=== PATIENT | female | born 1930 | race Caucasian/White ===

== ENCOUNTER 2018-08-30 01:28 | Inpatient (IN) ==
[2018-08-30 03:30] LABS: ABG Base Excess -3.5 mmol/L (-2.4-2.3); ABG HCO3 23.7 mmhg (22.0-26.0); ABG Oxygen Saturation 93 % (90-100); ABG PH 7.25 mmol/L (7.35-7.45); ABG PO2 74.6 mmhg (80-100); ABG TCO2 25.4 mmhg (23-27); Allen's Test Y; Oxygen 2.5 %
[2018-08-30 04:52] LABS: INR 1.16 (0.9-1.1); Prothrombin Time 11.9 seconds (9.4-11.8)
[2018-08-30 04:55] LABS: Basophils % 0.4 % (0.1-2.0); Eosinophils # 0.2 K/mm3 (0.0-0.4); Eosinophils % 5.4 % (0.1-12.0); Hematocrit 36.3 % (37.0-47.0); Hemoglobin 11.1 g/dL (12.2-16.2); Lymphocytes # 0.3 K/mm3 (0.7-4.5); Lymphocytes % 9.7 % (10-50); Mean Corpuscular HGB Conc 30.6 g/dL (31.8-35.4); Mean Corpuscular Hemoglobin 30.2 pg (27.0-31.2); Mean Corpuscular Volume 98.7 fl (81-99); Mean Platelet Volume 11.6 fl (7.4-10.4); Monocytes # 0.2 K/mm3 (0.1-1.0); Monocytes % 4.5 % (1.7-9.3); Neutrophils # 2.8 K/mm3 (1.8-7.8); Red Blood Count 3.68 M/mm3 (4.20-5.40); Red Cell Distribution Width 17.1 % (11.5-17.5); White Blood Count 3.5 K/mm3 (4.8-10.8)
[2018-08-30 05:05] LABS: Platelet Count 27 K/mm3 (142-424)
[2018-08-30 05:08] LABS: Albumin Level 2.6 gm/dL (3.4-5.0); Albumin/Globulin Ratio 0.8 (1.1-1.8); Anion Gap 7.9 mEq/L (5-15); Bilirubin,Total 0.4 mg/dL (0.2-1.0); Calcium 9.6 mg/dL (8.5-10.1); Globulin 3.2 gm/dl (1.3-3.2); Potassium 4.9 mmoL/L (3.5-5.1); Total Protein,Serum 5.8 gm/dL (6.4-8.2)
--- NOTE | 2018-08-30 07:44 | Pharmacy Consult Notes ---
[facility] Pharmacy VTE Monitoring - Patient Demographics Admission date: 08/30/18 Report Date: 08/30/18 Time: 07:44 Allergies/Adverse Reactions: Patient Allergies No Known Allergies Allergy (Verified 08/30/18 03:18) Height: 1.7 m Weight: 92.164 kg - VTE Risk Labs: VTE Related Lab Results Hgb 11.1 g/dL (12.2-16.2) L 08/30/18 04:00 Hct 36.3 % (37.0-47.0) L 08/30/18 04:00 Plt Count 27 K/mm3 (142-424) L* 08/30/18 04:00 PT 11.9 seconds (9.4-11.8) H 08/30/18 04:00 INR 1.16 (0.9-1.1) H 08/30/18 04:00 BUN 55 mg/dL (7-18) H 08/30/18 04:00 Creatinine 2.82 mg/dL (0.55-1.02) H 08/30/18 04:00 Estimated Creat Clear 20 mL/min (50-200) 08/30/18 04:00 VTE Risk Level: Moderate Risk - Prophylaxis VTE Prophylaxis Ordered?: Yes Types of VTE Prophylaxis: TEDS Knee High Location of Applied Device: Bilateral Lower Extremeties - VTE Diagnosis Confirmed Treatment or plan recommended: Continue Current Treatment
--- NOTE | 2018-08-30 08:07 | Non-Invasive Vascular Report ---
"Venous Exam Indications: 729.81 Swelling of limb. IMPRESSIONS 1. There is no evidence of significant Reflux. 2. No evidence of deep or superficial vein thrombosis involving the right lower extremity 3. No evidence of deep or superficial vein thrombosis involving the left lower extremity Limited exam unable to visualize veins below knees bilaterally secondary to edema and immobility. Complete lower extremity venous duplex evaluation. Doppler flow study including spectral analysis, color and hope scale imaging. Location: Bedside. Patient status: Inpatient. Tables: Venous flow and imaging: + +-------+ + |Location |Overall|Flow properties | + +-------+ + |Right common femoral |Patent |Normal phasicity; spontaneous; | | | |normal augmentation; compressible| + +-------+ + |Right saphenofemoral junction|Patent |Compressible | + +-------+ + |Right profunda femoral |Patent |Compressible | + +-------+ + |Right femoral |Patent |Normal phasicity; spontaneous; | | | |normal augmentation; | | | |compressible; no reflux | + +-------+ + |Right greater saphenous |Patent |Normal phasicity; spontaneous; | | | |normal augmentation; compressible| + +-------+ + |Right popliteal |Patent |Normal phasicity; spontaneous; | | | |normal augmentation; compressible| + +-------+ + |Right posterior tibial |-------| | + +-------+ + |Right peroneal |-------| | + +-------+ + |Right gastrocnemius |-------| | + +-------+ + |Right soleal |-------| | + +-------+ + |Left common femoral |Patent |Normal phasicity; spontaneous; | | | |normal augmentation; compressible| + +-------+ + |Left saphenofemoral junction |Patent |Compressible | + +-------+ + |Left profunda femoral |Patent |Compressible | + +-------+ + |Left femoral |Patent |Normal phasicity; spontaneous; | | | |normal augmentation; compressible| + +-------+ + |Left greater saphenous |Patent |Normal phasicity; spontaneous; | | | |normal augmentation; compressible| + +-------+ + |Left popliteal |Patent |Normal phasicity; spontaneous; | | | |normal augmentation; compressible| + +-------+ + |Left posterior tibial |Patent |Compressible | + +-------+ + |Left peroneal |-------| | + +-------+ + |Left gastrocnemius |-------| | + +-------+ + |Left soleal |-------| | + +-------+ + (Report amended ) Electronically signed by: Ritesh Batista [id number]"
--- NOTE | 2018-08-30 10:16 | Pharmacy Consult Notes ---
- Pharmacy Consult Date: 08/30/18 Time: 10:08 Referring provider: DR. PALAFOX Reason for Consult:: VANCOMYCIN DOSING Allergies and ADEs:: Allergies Allergy/AdvReac Type Severity Reaction Status Date / Time No Known Allergies Allergy Verified 08/30/18 03:18 Home Medications:: Home Medications Medication Instructions Recorded Confirmed Type Acetaminophen [Tylenol 325mg 650 mg PO TIDP PRN 08/30/18 08/30/18 History Tablet] Amlodipine Besylate [Norvasc 5mg 5 mg PO DAILY 08/30/18 08/30/18 History tablet] Aspirin [Aspirin 81mg chewable 81 mg PO DAILY 08/30/18 08/30/18 History tab] Calcitriol [Calcitriol 0.25mcg 0.25 mcg PO MOWEFR 08/30/18 08/30/18 History Capsule] Cyanocobalamin (Vitamin B-12) 1,000 mcg IM MONTHLY 08/30/18 08/30/18 History [Cyanocobalamin 1,000mcg/mL Vial] Famotidine [Pepcid 20mg Tablet] 20 mg PO DAILY 08/30/18 08/30/18 History Furosemide [Lasix 20mg tab] 10 mg PO MOWEFR 08/30/18 08/30/18 History Insulin Aspart Prot/Insuln Asp 0 unit SQ DIRECTED 08/30/18 08/30/18 History [Novolog Mix 70-30 Vial] Isosorbide Mononitrate [Imdur 30mg 30 mg PO DAILY 08/30/18 08/30/18 History ER tablet] Levothyroxine Sodium 137 mcg PO DAILY 08/30/18 08/30/18 History [Levothyroxine 137mcg (0.137mg) Tab] Mag Hydrox/Aluminum Hyd/Simeth 5 ml PO Q4HP PRN 08/30/18 08/30/18 History [Maalox Maximum Strength Susp] Polyethylene Glycol 3350 [Miralax 17 gm PO DAILY 08/30/18 08/30/18 History 17gm Packet] Psyllium Husk (with Sugar) 3.4 gm PO Q48H 08/30/18 08/30/18 History [Metamucil Packet] Height: 1.7 m Weight: 92.164 kg Laboratory Results:: Laboratory Results - last 24 hr 08/30/18 02:06: POC Glucose 97 08/30/18 03:28: Specimen Source L/r, O2 % 2.5, ABG pH 7.25 L, ABG pCO2 55.0 H, ABG pO2 74.6 L, ABG HCO3 23.7, ABG Total CO2 25.4, ABG O2 Saturation 93, ABG Base Excess -3.5 L, Ritesh Test Y 08/30/18 04:00: PT 11.9 H, INR 1.16 H 08/30/18 04:00: Sodium 145, Potassium 4.9, Chloride 111 H, Carbon Dioxide 31, Anion Gap 7.9, BUN 55 H, Creatinine 2.82 H, Estimated Creat Clear 20, Estimated GFR 16 L*, Est GFR ( Amer) 19 L*, Glucose 104, Calcium 9.6, Magnesium 3.7 H, Total Bilirubin 0.4, AST 41 H, ALT 45, Alkaline Phosphatase 75, Total Protein 5.8 L, Albumin 2.6 L, Globulin 3.2, Albumin/Globulin Ratio 0.8 L 08/30/18 04:00: Lactate 1.1 08/30/18 04:00: WBC 3.5 L, RBC 3.68 L, Hgb 11.1 L, Hct 36.3 L, MCV 98.7, MCH 30.2, MCHC 30.6 L, RDW 17.1, Plt Count 27 L*, MPV 11.6 H, Neut % (Auto) 80.0, Ly mph % (Auto) 9.7 L, [place] % (Auto) 4.5, Eos % (Auto) 5.4, Baso % (Auto) 0.4, Neut # (Auto) 2.8, Lymph # (Auto) 0.3 L, [place] # (Auto) 0.2, Eos # (Auto) 0.2, Baso # (Auto) 0.0 08/30/18 04:00: Troponin I 0.05 08/30/18 06:36: POC Glucose 84 08/30/18 06:59: Troponin I 0.05 Assessment and Plan - Assessment and plan all Dx Assessment and Plan for all problems:: BASED ON PATIENT FACTORS, RECOMMEND VANCOMYCIN 1750 MG IV ONCE, FOLLOWED BY VANCOMYCIN 1500 MG IV Q48H. PHARMACY WILL FOLLOW DAILY AND ADJUST APPROPRIATE.
--- NOTE | 2018-08-30 11:00 | Consult Report ---
Addendum entered and electronically signed by Jennifer Villar APRN 08/30/18 13:44: The patient's preliminary echo shows a normal ejection fraction and severe pulmonary hypertension. The patient needs diuresis secondary to her severe pulmonary hypertension. We will stop her IV fluids and start Lasix 80 mg IV twice daily. Original Note: History of Present Illness Consult date: 08/30/18 (@0900) Requesting physician: Paco Briggs Chief complaint: heart block History of present illness: This is an 88-year-old female who was transferred from our hospital from [facility]. The patient was transferred for bradycardia and third-degree heart block. On arrival to our hospital the patient's temperature was 86 F. She is currently septic. This may explain why she was so bradycardic and in third- degree heart block. The patient is not responding to any questions. She does open her eyes to stimuli and to her name being called but she is unable to answer any of my questions and she does not follow any of my commands. The patient's temperature has improved to 94 F and all of her other vital signs are stable this morning. [facility] History I have reviewed the patient's past medical history: Yes (Patient is not responding to any questions) *Have you ever received a pneumonia vaccine?: Yes *Have you received a flu vaccine this season?: Yes - *Social History Smoking Status: Unknown if ever smoked *Travel in the last 8 weeks: None Family Hx:: Unable to obtain Meds Home Medications Medication Instructions Recorded Confirmed Type Acetaminophen [Tylenol 325mg 650 mg PO TIDP PRN 08/30/18 08/30/18 History Tablet] Amlodipine Besylate [Norvasc 5mg 5 mg PO DAILY 08/30/18 08/30/18 History tablet] Aspirin [Aspirin 81mg chewable 81 mg PO DAILY 08/30/18 08/30/18 History tab] Calcitriol [Calcitriol 0.25mcg 0.25 mcg PO MOWEFR 08/30/18 08/30/18 History Capsule] Cyanocobalamin (Vitamin B-12) 1,000 mcg IM MONTHLY 08/30/18 08/30/18 History [Cyanocobalamin 1,000mcg/mL Vial] Famotidine [Pepcid 20mg Tablet] 20 mg PO DAILY 08/30/18 08/30/18 History Furosemide [Lasix 20mg tab] 10 mg PO MOWEFR 08/30/18 08/30/18 History Insulin Aspart Prot/Insuln Asp 0 unit SQ DIRECTED 08/30/18 08/30/18 History [Novolog Mix 70-30 Vial] Isosorbide Mononitrate [Imdur 30mg 30 mg PO DAILY 08/30/18 08/30/18 History ER tablet] Levothyroxine Sodium 137 mcg PO DAILY 08/30/18 08/30/18 History [Levothyroxine 137mcg (0.137mg) Tab] Mag Hydrox/Aluminum Hyd/Simeth 5 ml PO Q4HP PRN 08/30/18 08/30/18 History [Maalox Maximum Strength Susp] Polyethylene Glycol 3350 [Miralax 17 gm PO DAILY 08/30/18 08/30/18 History 17gm Packet] Psyllium Husk (with Sugar) 3.4 gm PO Q48H 08/30/18 08/30/18 History [Metamucil Packet] Allergies Allergy/AdvReac Type Severity Reaction Status Date / Time No Known Allergies Allergy Verified 08/30/18 03:18 Review of Systems - Review of Systems Review of systems:: unable to obtain Exam Vital signs and Labs for Last 24 Hours: Temp Pulse Resp BP Pulse Ox 96.0 F L 68 15 147/69 H 91 L 08/30/18 10:30 08/30/18 06:00 08/30/18 01:38 08/30/18 06:00 08/30/18 06:00 Laboratory Results - last 24 hr 08/30/18 02:06: POC Glucose 97 08/30/18 03:28: Specimen Source L/r, O2 % 2.5, ABG pH 7.25 L, ABG pCO2 55.0 H, ABG pO2 74.6 L, ABG HCO3 23.7, ABG Total CO2 25.4, ABG O2 Saturation 93, ABG Base Excess -3.5 L, Rietsh Test Y 08/30/18 04:00: PT 11.9 H, INR 1.16 H 08/30/18 04:00: Sodium 145, Potassium 4.9, Chloride 111 H, Carbon Dioxide 31, Anion Gap 7.9, BUN 55 H, Creatinine 2.82 H, Estimated Creat Clear 20, Estimated GFR 16 L*, Est GFR ( Amer) 19 L*, Glucose 104, Calcium 9.6, Magnesium 3.7 H, Total Bilirubin 0.4, AST 41 H, ALT 45, Alkaline Phosphatase 75, Total Protein 5.8 L, Albumin 2.6 L, Globulin 3.2, Albumin/Globulin Ratio 0.8 L 08/30/18 04:00: Lactate 1.1 08/30/18 04:00: WBC 3.5 L, RBC 3.68 L, Hgb 11.1 L, Hct 36.3 L, MCV 98.7, MCH 30.2, MCHC 30.6 L, RDW 17.1, Plt Count 27 L*, MPV 11.6 H, Neut % (Auto) 80.0, Lymph % (Auto) 9.7 L, [place] % (Auto) 4.5, Eos % (Auto) 5.4, Baso % (Auto) 0.4, Neut # (Auto) 2.8, Lymph # (Auto) 0.3 L, [place] # (Auto) 0.2, Eos # (Auto) 0.2, Baso # (Auto) 0.0 08/30/18 04:00: Troponin I 0.05 08/30/18 06:36: POC Glucose 84 08/30/18 06:59: Troponin I 0.05 I & O for Last 24 hours: Intake & Output 08/27/18 08/28/18 08/29/18 08/30/18 23:59 23:59 23:59 23:59 Intake Total 538 / 538 Output Total 1200 / 1200 Balance -662 / -662 Weight 203 lb 3 oz Narrative: Her EKG shows sinus bradycardia with a rate of 51. Her telemetry strip is sinus rhythm with a rate of 76. - Constitutional no acute distress, obese, chronically ill appearing - *Routine HEENT Exam Head: Present: normocephalic, atraumatic Eye: Present: EOMI, PERRL ENT: Present: mucous membranes moist - *Routine Neck Exam Present: supple. Absent: JVD, carotid bruit, lymphadenopathy - *Routine Respiratory Exam Present: decreased breath sounds - *Routine Cardiovascular Exam Present: RRR, Normal S1, Normal S2. Absent: murmur, gallop - *Routine Abdominal Exam Present: soft, normoactive bowel sounds. Absent: distended, rebound - *Routine Extremities Exam Present: edema, pulses intact. Absent: cyanosis, clubbing - *Routine Skin Exam Present: intact, warm. Absent: rash - *Routine Neurological Exam Present: altered mental status The patient does not respond to any of my commands. She does open her eyes to stimuli and to her name being called. Assessment and Plan (1) Sepsis Current visit: Yes Status: Acute Category: Medical Code(s): A41.9 - Sepsis, unspecified organism (2) Third degree heart block Current visit: Yes Status: Acute Category: Medical Code(s): I44.2 - Atrioventricular block, complete (3) Altered mental status Current visit: Yes Status: Acute Category: Medical Code(s): R41.82 - Altered mental status, unspecified (4) Congestive heart failure Current visit: Yes Status: Acute Category: Medical Code(s): I50.9 - Heart failure, unspecified (5) Edema Current visit: Yes Status: Acute Category: Medical Code(s): R60.9 - Edema, unspecified - Assessment and plan all Dx Assessment and Plan for all problems:: Plan: 1. The patient was admitted to the hospital from [facility] due to third-degree heart block. Upon arrival to [facility] the patient had a temperature of 86 F. She is likely septic and this is likely the cause of her bradycardia and third degree heart block. 2. Pt's current temp is currently 94 F. There will be no invasive cardiac procedures until her body temperature is in a normal range. 3. The patient will need an echocardiogram today to evaluate her LV function. 4. The patient will need supportive care care at this time until her temp improves. 5. Patient has congestive heart failure. She will need diuresis. Awaiting her echocardiogram to determine what her ejection fraction is. 6. Her blood pressure is well controlled. 7. Her LDL goal is less than 100. 8. As mentioned above awaiting results of her echocardiogram and the patient requires supportive care until her body temperature has improved. 9. The recommendations will be made pending the patient's response to treatment. Thank you for the opportunity to help participate in the care of this patient.
[2018-08-30 12:22] LABS: Basophils % 0.1 % (0.1-2.0); Eosinophils # 0.2 K/mm3 (0.0-0.4); Eosinophils % 3.1 % (0.1-12.0); Hematocrit 38.1 % (37.0-47.0); Hemoglobin 11.4 g/dL (12.2-16.2); Lymphocytes # 0.4 K/mm3 (0.7-4.5); Lymphocytes % 4.8 % (10-50); Mean Corpuscular HGB Conc 29.9 g/dL (31.8-35.4); Mean Corpuscular Hemoglobin 29.4 pg (27.0-31.2); Mean Corpuscular Volume 98.2 fl (81-99); Mean Platelet Volume 9.7 fl (7.4-10.4); Monocytes # 0.3 K/mm3 (0.1-1.0); Monocytes % 4.6 % (1.7-9.3); Neutrophils # 6.5 K/mm3 (1.8-7.8); Neutrophils % 87.4 % (37.0-80.0); Red Blood Count 3.87 M/mm3 (4.20-5.40); Red Cell Distribution Width 17.2 % (11.5-17.5); White Blood Count 7.4 K/mm3 (4.8-10.8)
[2018-08-30 12:26] LABS: Anion Gap 9.4 mEq/L (5-15); Calcium 9.5 mg/dL (8.5-10.1); Potassium 5.4 mmoL/L (3.5-5.1)
[2018-08-30 12:57] LABS: Platelet Count 41 K/mm3 (142-424)
[2018-08-30 13:15] LABS: Eosinophils % 2 % (0-3); Hypochromasia 1+; Lymphocytes % 3 % (10-50); Monocytes % 3 % (2-9); Neutrophils % 92 % (42-76); Total Cells Counted 100
--- NOTE | 2018-08-30 14:19 | History & Physical Report ---
*Admission Date: 08/30/18 *Chief complaint: slow heart rate *History of present illness: this elderly wf was seen at [facility] and was noted to have progressive change in mental status and decreased hr - she was from [facility] - the [facility] felt pt had third degree heart block and discussed with dr lerma who accepted pt to [facility]-pt was seen on floor and was noted to be obtunded and hypothermic - her records were reviewed from [facility] in detail and she was discussed with her family at the bedside - pt was unable to give hx secondary to medical condition [facility] History I have reviewed the patient's past medical history: Yes *Have you ever received a pneumonia vaccine?: Yes *Have you received a flu vaccine this season?: Yes - *Social History Smoking Status: Unknown if ever smoked *Travel in the last 8 weeks: None Family Hx:: Unable to obtain Review of Systems - Review of Systems Review of systems:: unable to obtain, pertinent systems reviewed and negative unless documented below - Constitutional Reports anorexia, Reports fever(s) - Eyes Reports change in vision - ENT Reports sore throat - *Cardiovascular Reports chest pain at rest Meds Home Medications Medication Instructions Recorded Confirmed Type Acetaminophen [Tylenol 325mg 650 mg PO TIDP PRN 08/30/18 08/30/18 History Tablet] Amlodipine Besylate [Norvasc 5mg 5 mg PO DAILY 08/30/18 08/30/18 History tablet] Aspirin [Aspirin 81mg chewable 81 mg PO DAILY 08/30/18 08/30/18 History tab] Calcitriol [Calcitriol 0.25mcg 0.25 mcg PO MOWEFR 08/30/18 08/30/18 History Capsule] Cyanocobalamin (Vitamin B-12) 1,000 mcg IM MONTHLY 08/30/18 08/30/18 History [Cyanocobalamin 1,000mcg/mL Vial] Famotidine [Pepcid 20mg Tablet] 20 mg PO DAILY 08/30/18 08/30/18 History Furosemide [Lasix 20mg tab] 10 mg PO MOWEFR 08/30/18 08/30/18 History Insulin Aspart Prot/Insuln Asp 0 unit SQ DIRECTED 08/30/18 08/30/18 History [Novolog Mix 70-30 Vial] Isosorbide Mononitrate [Imdur 30mg 30 mg PO DAILY 08/30/18 08/30/18 History ER tablet] Levothyroxine Sodium 137 mcg PO DAILY 08/30/18 08/30/18 History [Levothyroxine 137mcg (0.137mg) Tab] Mag Hydrox/Aluminum Hyd/Simeth 5 ml PO Q4HP PRN 08/30/18 08/30/18 History [Maalox Maximum Strength Susp] Polyethylene Glycol 3350 [Miralax 17 gm PO DAILY 08/30/18 08/30/18 History 17gm Packet] Psyllium Husk (with Sugar) 3.4 gm PO Q48H 08/30/18 08/30/18 History [Metamucil Packet] Allergies Allergy/AdvReac Type Severity Reaction Status Date / Time No Known Allergies Allergy Verified 08/30/18 03:18 Exam Vital signs and Labs for Last 24 Hours: Temp Pulse Resp BP Pulse Ox 97.6 F 80 18 130/49 L 89 L 08/30/18 11:49 08/30/18 12:00 08/30/18 12:00 08/30/18 12:00 08/30/18 12:00 Laboratory Results - last 24 hr 08/30/18 02:06: POC Glucose 97 08/30/18 03:28: Specimen Source L/r, O2 % 2.5, ABG pH 7.25 L, ABG pCO2 55.0 H, ABG pO2 74.6 L, ABG HCO3 23.7, ABG Total CO2 25.4, ABG O2 Saturation 93, ABG Base Excess -3.5 L, Ritesh Test Y 08/30/18 04:00: PT 11.9 H, INR 1.16 H 08/30/18 04:00: Sodium 145, Potassium 4.9, Chloride 111 H, Carbon Dioxide 31, Anion Gap 7.9, BUN 55 H, Creatinine 2.82 H, Estimated Creat Clear 20, Estimated GFR 16 L*, Est GFR ( Amer) 19 L*, Glucose 104, Calcium 9.6, Magnesium 3.7 H, Total Bilirubin 0.4, AST 41 H, ALT 45, Alkaline Phosphatase 75, Total Protein 5.8 L, Albumin 2.6 L, Globulin 3.2, Albumin/Globulin Ratio 0.8 L 08/30/18 04:00: Lactate 1.1 08/30/18 04:00: WBC 3.5 L, RBC 3.68 L, Hgb 11.1 L, Hct 36.3 L, MCV 98.7, MCH 30.2, MCHC 30.6 L, RDW 17.1, Plt Count 27 L*, MPV 11.6 H, Neut % (Auto) 80.0, Lymph % (Auto) 9.7 L, [place] % (Auto) 4.5, Eos % (Auto) 5.4, Baso % (Auto) 0.4, Neut # (Auto) 2.8, Lymph # (Auto) 0.3 L, [place] # (Auto) 0.2, Eos # (Auto) 0.2, Baso # (Auto) 0.0 08/30/18 04:00: Troponin I 0.05 08/30/18 06:36: POC Glucose 84 08/30/18 06:59: Troponin I 0.05 08/30/18 10:20: Troponin I 0.04 08/30/18 12:10: WBC 7.4 D, RBC 3.87 L, Hgb 11.4 L, Hct 38.1, MCV 98.2, MCH 29.4, MCHC 29.9 L, RDW 17.2, Plt Count 41 L* D, MPV 9.7, Neut % (Auto) 87.4 H, Lymph % (Auto) 4.8 L, [place] % (Auto) 4.6, Eos % (Auto) 3.1, Baso % (Auto) 0.1, Neut # (Auto) 6.5, Lymph # (Auto) 0.4 L, [place] # (Auto) 0.3, Eos # (Auto) 0.2, Baso # (Auto) 0.0, Total Counted 100, Neutrophils % (Manual) 92 H, Lymphocytes % (Manual) 3 L, Monocytes % (Manual) 3, Eosinophils % (Manual) 2, Platelet Estimate Moderate decrease, Hypochromasia 1+ 08/30/18 12:10: Sodium 145, Potassium 5.4 H, Chloride 110 H, Carbon Dioxide 31, Anion Gap 9.4, BUN 56 H, Creatinine 2.77 H, Estimated Creat Clear 20, Estimated GFR 16 L*, Est GFR ( Amer) 19 L*, Glucose 79 D, Calcium 9.5 I & O for Last 24 hours: Intake & Output 08/28/18 08/29/18 08/30/18 08/31/18 11:59 11:59 11:59 11:59 Intake Total 538 / 538 0 / 0 Output Total 1200 / 1200 Balance -662 / -662 0 / 0 Weight 203 lb 3 oz 203 lb - Constitutional no acute distress, obese, obtunded - *Routine HEENT Exam Head: Present: normocephalic Eye: Present: EOMI, PERRL. Absent: conjunctival icterus ENT: Present: mucous membranes dry - *Routine Neck Exam Absent: JVD - *Routine Respiratory Exam Present: decreased breath sounds - *Routine Cardiovascular Exam Present: murmur, S4, bradycardia - *Routine Abdominal Exam Present: soft - *Routine Extremities Exam Present: edema Comments: chronic venous stasis changes and reddness but little warmth - *Routine Skin Exam Absent: rash Comments: had chronic cellulitis lower ext - *Routine Neurological Exam Present: CN II-XII intact, altered mental status no posturing and no gross focal changes - Routine Psychiatric Exam Present: unable to assess Assessment and Plan (1) Sepsis Current visit: Yes Status: Acute Category: Medical Code(s): A41.9 - Sepsis, unspecified organism (2) Third degree heart block Current visit: Yes Status: Acute Category: Medical Code(s): I44.2 - Atrioventricular block, complete (3) Altered mental status Current visit: Yes Status: Acute Category: Medical Code(s): R41.82 - Altered mental status, unspecified (4) Congestive heart failure Current visit: Yes Status: Acute Category: Medical Code(s): I50.9 - Heart failure, unspecified (5) Edema Current visit: Yes Status: Acute Category: Medical Code(s): R60.9 - Edema, unspecified (6) Hypothermia Current visit: Yes Status: Acute Category: Medical Code(s): T68.XXXA - Hypothermia, initial encounter (7) Obesity (BMI 30.0-34.9) Current visit: Yes Status: Acute Category: Medical Code(s): E66.9 - Obesity, unspecified (8) Thrombocytopenia Current visit: Yes Status: Acute Category: Medical Code(s): D69.6 - Thrombocytopenia, unspecified (9) Hyperkalemia Current visit: Yes Status: Acute Category: Medical Code(s): E87.5 - Hyperkalemia (10) Renal insufficiency Current visit: Yes Status: Acute Category: Medical Code(s): N28.9 - Disorder of kidney and ureter, unspecified
--- NOTE | 2018-08-30 18:23 | Death Note ---
Discharge Sum: Prov - Provider Primary care physician: Joe Oreilly MD Admitting clinician: Paco Briggs Attending physician on admission: Paco Briggs Consults: 08/30/18 08:00 Cardiology Consult [Consult to Cardiology] [CONS] Routine Consulting Provider: Dayo Molina Comment: bradycardia Pronouncing clinician: Dayo Molina Discharge Sum: Diag - PCOD Cause of : Congestive heart failure Discharge Sum: Summary - Date and Time Date of admission: 08/30/18 01:28 Date of : 08/30/18 Time of : 14:53 - Additional Data Confirmation of as documented by pronouncing clinician: no pulse, no respirations, pupils fixed and dilated Family: at bedside Attending/PCP notified?: Yes Attending physician: Paco Briggs MD Was code activated?: Yes Autopsy requested?: No latent fingerprint examiner notified?: Yes Organ bank notified?: Yes Advance directives: Yes Hospice patient?: No
--- NOTE | 2018-08-30 18:25 | Discharge Summary ---
General - General Admission date:: 08/30/18 Discharge date: 08/30/18 HPI HPI: this elderly wf was seen at [facility] and was noted to have progressive change in mental status and decreased hr - she was from f - the [facility] felt pt had third degree heart block and discussed with dr lerma who accepted pt to [facility]-pt was seen on floor and was noted to be obtunded and hypothermic - her records were reviewed from [facility] in detail and she was discussed with her family at the bedside - pt was unable to give hx secondary to medical condition Hospital Course Hospital Course: pt remained obtunded and hypothermic with stable general labs and was felt to be septic - is is an 88-year-old female who was transferred from our hospital from [facility]. The patient was transferred for bradycardia and third-degree heart block. On arrival to our hospital the patient's temperature was 86 F. She is currently septic. This may explain why she was so bradycardic and in third-degree heart block. The patient is not responding to any questions. She does open her eyes to stimuli and to her name being called but she is unable to answer any of my questions and she does not follow any of my commands. The patient's temperature has improved to 94 F and all of her other vital signs are stable this morning. The patient was admitted to the hospital from [facility] due to third-degree heart block. Upon arrival to [facility] the patient had a temperature of 86 F. She is likely septic and this is likely the cause of her bradycardia and third degree heart block. 2. Pt's current temp is currently 94 F. There will be no invasive cardiac procedures until her body temperature is in a normal range. 3. The patient will need an echocardiogram today to evaluate her LV function. 4. The patient will need supportive care care at this time until her temp improves. 5. Patient has congestive heart failure. She will need diuresis. Awaiting her echocardiogram to determine what her ejection fraction is. 6. Her blood pressure is well controlled. 7. Her LDL goal is less than 100. 8. As mentioned above awaiting results of her echocardiogram and the patient requires supportive care until her body temperature has improved. 9. The recommendations will be made pending the patient's response to treatment. pt had echo and venous doppler and was given iv lasix - but remained hypothermic and has cardio-pul arrest - see code records and Objective Vital signs: Temp Pulse Resp BP Pulse Ox 99.0 F 80 18 130/49 L 89 L 08/30/18 14:40 08/30/18 12:00 08/30/18 12:00 08/30/18 12:00 08/30/18 12:00 moderate distress, obese, obtunded - *Routine HEENT Exam Head: Present: normocephalic Eye: Present: EOMI, PERRL ENT: Present: mucous membranes dry - *Routine Neck Exam Present: trachea midline. Absent: JVD - *Routine Respiratory Exam Present: decreased breath sounds - *Routine Cardiovascular Exam Present: RRR, murmur - *Routine Abdominal Exam Present: soft - *Routine Extremities Exam Present: edema - *Routine Skin Exam Present: intact - *Routine Neurological Exam no posturing - Routine Psychiatric Exam Present: unable to assess Results Labs on day of discharge: Labs from last 24 hours 08/30/18 08/30/18 08/30/18 12:10 12:10 10:20 WBC 7.4 D RBC 3.87 L Hgb 11.4 L Hct 38.1 MCV 98.2 MCH 29.4 MCHC 29.9 L RDW 17.2 Plt Count 41 L* D MPV 9.7 Neut % (Auto) 87.4 H Lymph % (Auto) 4.8 L [place] % (Auto) 4.6 Eos % (Auto) 3.1 Baso % (Auto) 0.1 Neut # (Auto) 6.5 Lymph # (Auto) 0.4 L [place] # (Auto) 0.3 Eos # (Auto) 0.2 Baso # (Auto) 0.0 Total Counted 100 Neutrophils % (Manual) 92 H Lymphocytes % (Manual) 3 L Monocytes % (Manual) 3 Eosinophils % (Manual) 2 Platelet Estimate Moderate decrease Hypochromasia 1+ PT INR Specimen Source O2 % ABG pH ABG pCO2 ABG pO2 ABG HCO3 ABG Total CO2 ABG O2 Saturation ABG Base Excess Ritesh Test Sodium 145 Potassium 5.4 H Chloride 110 H Carbon Dioxide 31 Anion Gap 9.4 BUN 56 H Creatinine 2.77 H Estimated Creat Clear 20 Estimated GFR 16 L* Est GFR ( Amer) 19 L* Glucose 79 D POC Glucose Lactate Calcium 9.5 Magnesium Total Bilirubin AST ALT Alkaline Phosphatase Troponin I 0.04 Total Protein Albumin Globulin Albumin/Globulin Ratio 08/30/18 08/30/18 08/30/18 06:59 06:36 04:00 WBC RBC Hgb Hct MCV MCH MCHC RDW Plt Count MPV Neut % (Auto) Lymph % (Auto) [place] % (Auto) Eos % (Auto) Baso % (Auto) Neut # (Auto) Lymph # (Auto) [place] # (Auto) Eos # (Auto) Baso # (Auto) Total Counted Neutrophils % (Manual) Lymphocytes % (Manual) Monocytes % (Manual) Eosinophils % (Manual) Platelet Estimate Hypochromasia PT INR Specimen Source O2 % ABG pH ABG pCO2 ABG pO2 ABG HCO3 ABG Total CO2 ABG O2 Saturation ABG Base Excess Ritesh Test Sodium Potassium Chloride Carbon Dioxide Anion Gap BUN Creatinine Estimated Creat Clear Estimated GFR Est GFR ( Amer) Glucose POC Glucose 84 Lactate Calcium Magnesium Total Bilirubin AST ALT Alkaline Phosphatase Troponin I 0.05 0.05 Total Protein Albumin Globulin Albumin/Globulin Ratio 08/30/18 08/30/18 08/30/18 04:00 04:00 04:00 WBC 3.5 L RBC 3.68 L Hgb 11.1 L Hct 36.3 L MCV 98.7 MCH 30.2 MCHC 30.6 L RDW 17.1 Plt Count 27 L* MPV 11.6 H Neut % (Auto) 80.0 Lymph % (Auto) 9.7 L [place] % (Auto) 4.5 Eos % (Auto) 5.4 Baso % (Auto) 0.4 Neut # (Auto) 2.8 Lymph # (Auto) 0.3 L [place] # (Auto) 0.2 Eos # (Auto) 0.2 Baso # (Auto) 0.0 Total Counted Neutrophils % (Manual) Lymphocytes % (Manual) Monocytes % (Manual) Eosinophils % (Manual) Platelet Estimate Hypochromasia PT INR Specimen Source O2 % ABG pH ABG pCO2 ABG pO2 ABG HCO3 ABG Total CO2 ABG O2 Saturation ABG Base Excess Ritesh Test Sodium 145 Potassium 4.9 Chloride 111 H Carbon Dioxide 31 Anion Gap 7.9 BUN 55 H Creatinine 2.82 H Estimated Creat Clear 20 Estimated GFR 16 L* Est GFR ( Amer) 19 L* Glucose 104 POC Glucose Lactate 1.1 Calcium 9.6 Magnesium 3.7 H Total Bilirubin 0.4 AST 41 H ALT 45 Alkaline Phosphatase 75 Troponin I Total Protein 5.8 L Albumin 2.6 L Globulin 3.2 Albumin/Globulin Ratio 0.8 L 08/30/18 08/30/18 08/30/18 04:00 03:28 02:06 WBC RBC Hgb Hct MCV MCH MCHC RDW Plt Count MPV Neut % (Auto) Lymph % (Auto) [place] % (Auto) Eos % (Auto) Baso % (Auto) Neut # (Auto) Lymph # (Auto) [place] # (Auto) Eos # (Auto) Baso # (Auto) Total Counted Neutrophils % (Manual) Lymphocytes % (Manual) Monocytes % (Manual) Eosinophils % (Manual) Platelet Estimate Hypochromasia PT 11.9 H INR 1.16 H Specimen Source L/r O2 % 2.5 ABG pH 7.25 L ABG pCO2 55.0 H ABG pO2 74.6 L ABG HCO3 23.7 ABG Total CO2 25.4 ABG O2 Saturation 93 ABG Base Excess -3.5 L Ritesh Test Y Sodium Potassium Chloride Carbon Dioxide Anion Gap BUN Creatinine Estimated Creat Clear Estimated GFR Est GFR ( Amer) Glucose POC Glucose 97 Lactate Calcium Magnesium Total Bilirubin AST ALT Alkaline Phosphatase Troponin I Total Protein Albumin Globulin Albumin/Globulin Ratio DS: Diagnosis - Discharge Diagnosis (1) Sepsis Status: Acute (2) Third degree heart block Status: Acute (3) Altered mental status Status: Acute (4) Congestive heart failure Status: Acute (5) Edema Status: Acute (6) Hypothermia Status: Acute (7) Obesity (BMI 30.0-34.9) Status: Acute (8) Thrombocytopenia Status: Acute (9) Hyperkalemia Status: Acute (10) Renal insufficiency Status: Acute Discharge Plan - Patient Discharge Instructions ACTIVITY: Other (pt ) DIET: other (pt ) Patient Instructions: Echocardiogram, Bradycardia, DI for Heart Failure, DI for Sepsis -- Adult, DI for Altered Mental Status, DI for Bradycardia - Follow up Plan Disposition: Home Medications: Home Medications Medication Instructions Recorded Confirmed Type Acetaminophen [Tylenol 325mg 650 mg PO TIDP PRN 08/30/18 08/30/18 History Tablet] Amlodipine Besylate [Norvasc 5mg 5 mg PO DAILY 08/30/18 08/30/18 History tablet] Aspirin [Aspirin 81mg chewable 81 mg PO DAILY 08/30/18 08/30/18 History tab] Calcitriol [Calcitriol 0.25mcg 0.25 mcg PO MOWEFR 08/30/18 08/30/18 History Capsule] Cyanocobalamin (Vitamin B-12) 1,000 mcg IM MONTHLY 08/30/18 08/30/18 History [Cyanocobalamin 1,000mcg/mL Vial] Famotidine [Pepcid 20mg Tablet] 20 mg PO DAILY 08/30/18 08/30/18 History Furosemide [Lasix 20mg tab] 10 mg PO MOWEFR 08/30/18 08/30/18 History Insulin Aspart Prot/Insuln Asp 0 unit SQ DIRECTED 08/30/18 08/30/18 History [Novolog Mix 70-30 Vial] Isosorbide Mononitrate [Imdur 30mg 30 mg PO DAILY 08/30/18 08/30/18 History ER tablet] Levothyroxine Sodium 137 mcg PO DAILY 08/30/18 08/30/18 History [Levothyroxine 137mcg (0.137mg) Tab] Mag Hydrox/Aluminum Hyd/Simeth 5 ml PO Q4HP PRN 08/30/18 08/30/18 History [Maalox Maximum Strength Susp] Polyethylene Glycol 3350 [Miralax 17 gm PO DAILY 08/30/18 08/30/18 History 17gm Packet] Psyllium Husk (with Sugar) 3.4 gm PO Q48H 08/30/18 08/30/18 History [Metamucil Packet] Prescriptions/Medication Reconciliation: Discontinued Cyanocobalamin (Vitamin B-12) [Cyanocobalamin 1,000mcg/mL Vial] 1,000 mcg IM MONTHLY Famotidine [Pepcid 20mg Tablet] 20 mg PO DAILY Acetaminophen [Tylenol 325mg Tablet] 650 mg PO TIDP PRN PRN Reason: As Needed For Fever Or Pain Levothyroxine Sodium [Levothyroxine 137mcg (0.137mg) Tab] 137 mcg PO DAILY Polyethylene Glycol 3350 [Miralax 17gm Packet] 17 gm PO DAILY Isosorbide Mononitrate [Imdur 30mg ER tablet] 30 mg PO DAILY Furosemide [Lasix 20mg tab] 10 mg PO MOWEFR Aspirin [Aspirin 81mg chewable tab] 81 mg PO DAILY Amlodipine Besylate [Norvasc 5mg tablet] 5 mg PO DAILY Calcitriol [Calcitriol 0.25mcg Capsule] 0.25 mcg PO MOWEFR Mag Hydrox/Aluminum Hyd/Simeth [Maalox Maximum Strength Susp] 5 ml PO Q4HP PRN PRN Reason: STOMACH Insulin Aspart Prot/Insuln Asp [Novolog Mix 70-30 Vial] 0 unit SQ DIRECTED Psyllium Husk (with Sugar) [Metamucil Packet] 3.4 gm PO Q48H
--- NOTE | 2018-08-31 09:43 | Cardiology Report ---
PROCEDURE: 2-D M-mode and color Doppler study INDICATIONS FOR THE TEST: Chest pain COPD Heart Murmur Tobacco Smoking Palpitations Fatigue Syncope Edema HypertensionXDiabetes Mellitus Rheumatic Fever SOB DAWSON Obesity Hyperlipidemia Family History HD Additional History EDEMA EXT DEFIB IN PT UNABLE TO OBTAIN SUB COSTAL VIEWS PT IMMOBILE TDS PATIENT INFORMATION HEIGHT: 67 WEIGHT:203 GENDER: Female B/P: 2-D/M-MODE INTERPRETATION: 2-D MEASUREMENTS OBSERVED VALUES IN CMS Right Ventricular Dimension (RVDd) 2.5 Interventricular Septum (Thickness)(IVsd) 1.6 Left Ventricular Internal Dimensions(LVIDd) 5.0 Left Ventricular Posterior Wall (Thickness)(LVPWd) 1.6 Aortic Root 3.1 Aortic Cusp Separation 1.7 Left Atrial Dimensions (LAD) 4.1 2D 1. Technically difficult study because of the patient's factor and poor acoustic windows 2. Left atrium is moderately enlarged, left ventricle is normal size, mild concentric left ventricular hypertrophy, visually estimated ejection fraction of 55% with no regional wall motion abnormality. 3. The right atrium and right ventricle are moderately enlarged with normal contractility. 4. The aortic valve is thickened and calcified leaflet continue to display good mobility. 5. The mitral valve has mitral annular calcification, leaflets are minimally thickened. 6. The pulmonic valve is poorly visualized. 7. No significant pericardial effusion noted. DOPPLER INTERROGATION: Doppler interrogation of the aortic, mitral and tricuspid valvular presence of trace aortic, mild mitral and moderate to severe tricuspid regurgitation, calculated right ventricular systolic pressure 66 mmHg consistent with moderate pulmonary hypertension, diastolic parameters are inconclusive. CONCLUSION: 1. Moderate biatrial enlargement, normal left ventricular size, mild concentric left ventricular hypertrophy, visually estimated ejection fraction of 55% with no regional wall motion abnormality, diastolic parameters are inconclusive. 2. Moderately enlarged right ventricle with normal contractility. 3. Trace aortic, mild mitral and moderate to severe tricuspid regurgitation, calculated right ventricular systolic pressure is 66 mmHg consistent with moderate pulmonary hypertension. 4. No significant pericardial effusion noted.
== END 2018-08-30 18:25 | disposition expired | DRG 308 ==
LOC: 2ND → OBSVTOIN 01:28
PROVIDERS: ADMIT Emergency Medicine; ATTEND Emergency Medicine
DX: T68.XXXA Hypothermia, initial encounter; D69.6 Thrombocytopenia, unspecified; E87.5 Hyperkalemia; Z79.899 Other long term (current) drug therapy; I50.9 Heart failure, unspecified; E03.9 Hypothyroidism, unspecified; A41.9 Sepsis, unspecified organism; I44.2 Atrioventricular block, complete
CPT/HCPCS: J3370